=== PATIENT | female | born 1950 | race Hispanic/Latino ===

== ENCOUNTER 2017-11-30 05:05 | Emergency (ER) | payer BC, OTHER ==
[~2017-11-30] VITALS: Ht 154.9 cm; Wt 72.6 kg
[~2017-11-30 05:05] MED LIST: BISTOLIC PO
[2017-11-30 05:31] VITALS: BP 148/87
--- NOTE | 2017-11-30 06:38 | Diagnostic Imaging Report ---
EXAM: CHEST 2 VIEWS, PA and lateral INDICATION: Cough for 4 days COMPARISON: PA and lateral view of the chest October 18, 2016 FINDINGS: LINES/TUBES: None LUNGS: Left lower lobe airspace opacity PLEURA: No effusion or pneumothorax. HEART AND MEDIASTINUM: Normal size and contour. BONES AND SOFT TISSUES: No acute findings. IMPRESSION: Possible pneumonia in the left lung base. Signed by: Dr. Mala Vazquez M.D. on 11/30/2017 6:34 AM
== END 2017-11-30 06:57 | disposition home or self-care (01) ==
LOC: ER 05:05
DX: R05 Cough (principal); J20.9 Acute bronchitis, unspecified; H10.231 Serous conjunctivitis, except viral, right eye; I10 Essential (primary) hypertension; E11.9 Type 2 diabetes mellitus without complications
CPT/HCPCS: 71046; 83518; 87070; 99283

== ENCOUNTER → 2017-12-24 | Outpatient (CLI) | payer BC | LOC: MAMMO 10:12 | PROVIDERS: ATTEND Family Medicine | DX: Z12.31 Encounter for screening mammogram for malignant neoplasm of breast (principal) | CPT/HCPCS: 77067 ==

== ENCOUNTER → 2018-03-04 | Outpatient (CLI) | payer BC ==
--- NOTE | 2018-03-04 14:29 | Diagnostic Imaging Report ---
EXAM: DXA BONE DENSITY INDICATIONS: POST MENOPAUSAL COMPARISON: None. FINDINGS: Proximal left femur bone (femoral neck) mineral density (BMD) (g/cm2): 0.84 Femur T-score (standard deviation relative to young adult mean BMD): -0.3 Femur Z-score (standard deviation relative to age-matched control group):1.2 Lumbar bone mineral density (BMD) (g/cm2):0.93 Lumbar T-score (standard deviation relative to young adult mean BMD): -1.1 Lumbar Z-score (standard deviation relative to age-matched control group):0.7 Change since prior exam (%): Femur:Not applicable. Spine:Not applicable. Change since oldest prior exam (%): Femur:Not applicable. Spine:Not applicable. CONCLUSION: 1. Bone mineral density in the left femur is classified as normal. 2. Bone mineral density in the spine is classified as osteopenia/low bone mass. Fracture risk is moderate. World Health Organization Classification: *The Z-score is provided for informational purposes. The T-score is preferable for clinical decisions. When comparing exams, a change of >4% is considered statistically significant. SUGGESTED RECOMMENDATIONS: Normal \T\ Osteopenia:Consideration should be given to use of calcium supplementation, daily multiple vitamins and adequate exercise, as preventive measures against osteoporosis, if clinically indicated. Osteoporosis \T\ Severe Osteoporosis:In addition to the above, consideration should be given to medical therapy against osteoporosis, if clinically indicated. Dictated by: Shamar Israel M.D. on 03/04/2018 at 14:35 Electronically approved by: Shamar Israel M.D. on 03/04/2018 at 14:35
== END ==
LOC: DX 13:43
PROVIDERS: ATTEND Family Medicine
DX: Z13.820 Encounter for screening for osteoporosis (principal); Z78.0 Asymptomatic menopausal state
CPT/HCPCS: 77080

== ENCOUNTER 2019-06-21 07:00 | Emergency (ER) | payer SELFPAY ==
[~2019-06-21] VITALS: Ht 154.9 cm; Wt 72.6 kg
--- OUTSIDE RECORDS SUMMARY | 2019-06-21 07:03 | XMS REPORT ---
Author Author [facility] Address Unknown Phone Unavailable Care Team Providers Care Harness Preparer Name Role Phone JESUS OLIVER Unavailable Unavailable Nadira DONOHUE Unavailable Unavailable Problems This patient has no known problems. Allergies, Adverse Reactions, Alerts This patient has no known allergies or adverse reactions. Medications This patient has no known medications. Results Test Description Test Time Test Comments Text Results Atomic Results Result Comments BONE DXA DUAL ENERGY 2018-03-04 14:35:00 [place] [address] Patient Name: SHAYLA EATON MR #: [id number] : 1950 Age/Sex: 67/F Req #: [id number] [facility] Physician: Ordered by: MELODY SCHULZ, JESUS Jimenez MD Report #: [id number] Location: DX Room/Bed: Procedure: [id number] DX/BONE DXA DUAL ENERGY Exam Date: Exam Time: REPORT STATUS: Signed EXAM: DXA BONE DENSITY INDICATIONS: POST MENOPAUSAL COMPARISON: None. FINDINGS: Proximal left femur bone (femoral neck) mineral density (BMD) (g/cm2): 0.84 Femur T-score (standard deviation relative to young adult mean BMD): -0.3 Femur Z-score (standard deviation relative to age-matched control group): 1.2 Lumbar bone mineral density (BMD) (g/cm2): 0.93 Lumbar T-score (standard deviation relative to young adult mean BMD): -1.1 Lumbar Z-score (standard deviation relative to age-matched control group): 0.7 Change since prior exam (%): Femur: Not applicable. Spine: Not applicable. Change since oldest prior exam (%): Femur: Not applicable. Spine: Not applicable. CONCLUSION: 1. Bone mineral density in the left femur is classified as normal. 2. Bone mineral density in the spine is classified as osteopenia/low bone mass. Fracture risk is moderate. World Health Organization Classification: *The Z-score is provided for informational purposes. The T-score is preferable for clinical decisions. When comparing exams, a change of >4% is considered statistically significant. SUGGESTED RECOMMENDATIONS: Normal T Osteopenia: Consideration should be given to use of calcium supplementation, daily multiple vitamins and adequate exercise, as preventive measures against osteoporosis, if clinically indicated. Osteoporosis T Severe Osteoporosis: In addition to the above, consideration should be given to medical therapy against osteoporosis, if clinically indicated. Dictated by: Shamar Cortez M.D. on 03/04/2018 at 14:35 Electronically approved by: Shamar Cortez M.D. on 03/04/2018 at 14:35 Dictated By: SHAMAR CORTEZ MD 1435 Transcribed By: JEFFY on 03/04/18 1435 COPY TO: JESUS OLIVER MAMMOGRAPHY DIGITAL SCR BILAT 2017-12-24 10:47:00 [place] [address] Patient Name: SHAYLA EATON MR #: [id number] : 1950 Age/Sex: 67/F Req #: [id number] Adm Physician: Ordered by: JESUS OLIVER MD, MD Report #: [id number] Location: [facility] Room/Bed: Procedure: MG/MAMMOGRAPHY DIGITAL SCR BILAT Exam Date: 12/24/17 Exam Time: 1033 REPORT STATUS: Signed #[id number] - MGSCRBIL #BILATERAL DIGITAL SCREENING MAMMOGRAM WITH CAD: 12/24/2017 CLINICAL: Routine screening. No prior exams were available for comparison. Current study contains 4 films. There are scattered fibroglandular elements in both breasts. Current study was also evaluated with a Computer Aided Detection (CAD) system. There are benign calcifications in both breasts. No significant masses, calcifications, or other findings are seen in either breast. IMPRESSION: BENIGN There is no mammographic evidence of malignancy. A 1 year screening mammogram is recommended. The patient will be notified by letter of the results. Nahomi amaya/destiny:01/03/2018 13:52:03 Help Desk Operator: Ellyn SHERMAN(R)(M), [facility] letter sent: Normal Exam Mammogram BI-RADS: 2 Benign Dictated By: NAHOMI BERMAN DO 1352 Transcribed By: DESTINY on 01/03/18 1352 COPY TO: JESUS OLIVER CHEST 2 VIEWS [place] [address] Patient Name: SHAYLA EATON MR #: [id number] : 1950 Age/Sex: 67/F Req #: [id number] [facility] Physician: Ordered by: ELIDA DONOHUE MD Report #: [id number] Location: ER Room/Bed: Procedure: [id number] DX/CHEST 2 VIEWS Exam Date: 11/30/17 Exam Time: 0555 REPORT STATUS: Signed EXAM: CHEST 2 VIEWS, PA and lateral INDICATION: Cough for 4 days COMPARISON: PA and lateral view of the chest October 18, 2016 FINDINGS: LINES/TUBES: None LUNGS: Left lower lobe airspace opacity PLEURA: No effusion or pneumothorax. HEART AND MEDIASTINUM: Normal size and contour. BONES AND SOFT TISSUES: No acute findings. IMPRESSION: Possible pneumonia in the left lung base. Signed by: Dr. Alma Vazquez M.D. on 11/30/2017 6:34 AM Dictated By: ALMA VAZQUEZ MD 3 Transcribed By: GILSON on 11/30/17633 COPY TO: ELIDA DONOHUE MD
[2019-06-21] MEDS ORDERED: SILVER NITRATE SWABS TOP ONE (07:45)
== END 2019-06-21 08:00 | disposition home or self-care (01) ==
LOC: ER 07:00
DX: R04.0 Epistaxis (principal)
CPT/HCPCS: 99283

== ENCOUNTER → 2019-11-23 | Outpatient (CLI) | payer MEDICARE, OTHER ==
--- NOTE | 2019-11-23 15:05 | Diagnostic Imaging Report ---
EXAM: US PELVIS COMPLETE NON OB, US TRANSVAGINAL DATE: 11/23/2019 1:09 PM INDICATION: Dysfunctional uterine bleeding COMPARISON: None FINDINGS: Transabdominal and transvaginal images were obtained of the pelvis. There is a 0.6 x 0.5 x 0.7 cm well-defined hypoechoic lesion identified within the cervix. The uterus measures 5.4 x 3.1 x 4.8 cm. Multiple multiple subcentimeter echogenic foci are identified throughout the uterus. A shadowing echogenic foci within this the submucosal region measures approximately 0.8 x 0.3 x 0.8 cm. A trace amount of anechoic appearing fluid is noted within the endometrial stripe. The endometrial stripe otherwise measures 3 mm in maximal thickness. The right ovary measures 1.1 x 1.0 x 1.2 cm. The left ovary measures 1.4 x 0.9 x 0.9 cm. No abnormal adnexal masses are identified. IMPRESSION: 1. Subcentimeter hypoechoic lesion identified within the cervix which is a definitively characterized on this ultrasound examination but may represent a nabothian cyst with internal debris. 2. Multiple echogenic foci identified within the uterine likely representing calcifications. 3. Trace amount of nonspecific free fluid noted within the endometrial stripe. Signed by: Dr. Adan Dunlap MD on 11/23/2019 3:01 PM
== END ==
LOC: US 12:27
PROVIDERS: ATTEND Family Medicine
DX: N93.8 Other specified abnormal uterine and vaginal bleeding (principal)
CPT/HCPCS: 76830; 76856

== ENCOUNTER 2020-04-27 21:19 | Emergency (ER) | payer MEDICARE, OTHER ==
[~2020-04-27] VITALS: Ht 160 cm; Wt 88.5 kg
--- OUTSIDE RECORDS SUMMARY | 2020-04-27 21:54 | XMS REPORT | Continuity of Care Document ---
Author Author [facility] t Organization [facility] Address [address] [place] [address] Phone Unavailable Care Team Providers Care Paster Hat Lining Name Role Phone JESUS OLIVER PCP Barbara OLIVER MD Attphys Unavailable Nadira DONOHUE Attphys Unavailable Payers Payer Name Policy Type Policy Number Effective Date Expiration Date [id number] 2014 00:00:00 [facility] [employer] Pos [id number] 2014 00:00:00 [facility] Problems This patient has no known problems. Allergies, Adverse Reactions, Alerts Allergy Name Allergy Type Status Severity Reaction(s) Onset Date Inacti ve Date Treating Clinician Comments Source hydrocodone bit Allergy to Substance Active AIRWAY 2013-07-27 00:0 0:00 [facility] Acetaminophen Allergy to Substance Active AIRWAY 2013-07-27 00:00: 00 [facility] Medications Ordered Medication Name Filled Medication Name Start Date Stop Da te Current Medication? Ordering Clinician Indication Dosage Frequency Signature (SIG) Comments Components Source Bistolic Bistolic Yes 5 Daily [facility] Procedures This patient has no known procedures. Encounters Start Date/Time End Date[facility] Source 2019-06-21 07:00:00 2019-06-21 08:00:00 Departed Emergency Room [facility] [id number] [facility] 2017-11-30 05:05:00 2017-11-30 06:57:00 Departed Emergency Room ER ELIDA DONOHUE [facility] [id number] [facility] Results Test Description Test Time Test Comments Results Result Comments Source US TRANSVAGINAL 2019-11-23 14:09:00 [place] [address] Patient Name: SHAYLA EATON MR #: [id number] : 1950 Age/Sex: 69/F Req #: [id number] Adm Physician: Ordered by: MELODY SCHULZ, JESUS Jimenez MD Report #: [id number] Location: US Room/Bed: Procedure: [id number] US/US TRANSVAGINAL Exam Date: 11/23/19 Exam Time: 1309 REPORT STATUS: Signed EXAM: US PELVIS COMPLETE NON OB, US TRANSVAGINAL DATE: 11/23/2019 1:09 PM INDICATION: Dysfunctional uterine bleeding COMPARISON: None FINDINGS: Transabdominal and transvaginal images were obtained of the pelvis. There is a 0.6 x 0.5 x 0.7 cm well-defined hypoechoic lesion identified within the cervix. The uterus measures 5.4 x 3.1 x 4.8 cm. Multiple multiple subcentimeter echogenic foci are identified throughout the uterus. A shadowing echogenic foci within this the submucosal region measures approximately 0.8 x 0.3 x 0.8 cm. A trace amount of anechoic appearing fluid is noted within the endometrial stripe. The endometrial stripe otherwise measures 3 mm in maximal thickness. The right ovary measures 1.1 x 1.0 x 1.2 cm. The left ovary measures 1.4 x 0.9 x 0.9 cm. No abnormal adnexal masses are identified. IMPRESSION: 1. Subcentimeter hypoechoic lesion identified within the cervix which is a definitively characterized on this ultrasound examination but may represent a nabothian cyst with internal debris. 2. Multiple echogenic foci identified within the uterine likely representing calcifications. 3. Trace amount of nonspecific free fluid noted within the endometrial stripe. Signed by: Dr. Adan Dunlap MD on 11/23/2019 3:01 PM Dictated By: ADAN DUNLAP MD 00 Transcribed By: GILSON on 11/23/191 COPY TO: JESUS OLIVER PELVIS COMPLETE NON OB 2019-11-23 14:09:00 [place] [address] Patient Name: SHAYLA EATON MR #: [id number] : 1950 Age/Sex: 69/F Req #: [id number] Adm Physician: Ordered by: JESUS OLIVER MD, MD Report #: [id number] Location: US Room/Bed: Procedure: [id number] US/US PELVIS COMPLETE NON OB Exam Date: 11/23/19 Exam Time: 1309 REPORT STATUS: Signed EXAM: US PELVIS COMPLETE NON OB, US TRANSVAGINAL DATE: 11/23/2019 1:09 PM INDICATION: Dysfunctional uterine bleeding COMPARISON: None FINDINGS: Transabdominal and transvaginal images were obtained of the pelvis. There is a 0.6 x 0.5 x 0.7 cm well-defined hypoechoic lesion identified within the cervix. The uterus measures 5.4 x 3.1 x 4.8 cm. Multiple multiple subcentimeter echogenic foci are identified throughout the uterus. A shadowing echogenic foci within this the submucosal region measures approximately 0.8 x 0.3 x 0.8 cm. A trace amount of anechoic appearing fluid is noted within the endometrial stripe. The endometrial stripe otherwise measures 3 mm in maximal thickness. The right ovary measures 1.1 x 1.0 x 1.2 cm. The left ovary measures 1.4 x 0.9 x 0.9 cm. No abnormal adnexal masses are identified. IMPRESSION: 1. Subcentimeter hypoechoic lesion identified within the cervix which is a definitively characterized on this ultrasound examination but may represent a nabothian cyst with internal debris. 2. Multiple echogenic foci identified within the uterine likely representing calcifications. 3. Trace amount of nonspecific free fluid noted within the endometrial stripe. Signed by: Dr. Adan Dunlap MD on 11/23/2019 3:01 PM Dictated By: ADAN DUNLAP MD 150 Transcribed By: GILSON on 11/23/19 150 COPY TO: JESUS OLIVER BONE DXA DUAL ENERGY 2018-03-04 14:35:00 [place] [address] Patient Name: SHAYLA EATON MR #: [id number] : 1950 Age/Sex: 67/F Req #: [id number] Adm Physician: Ordered by: MELODY SCHULZ, JESUS Jimenez MD Report #: [id number] Location: DX Room/Bed: Procedure: [id number] DX/BONE DXA DUAL ENERGY Exam Date: Exam [...] OLIVER MAMMOGRAPHY DIGITAL SCR BILAT 2017-12-24 10:47:00 [place] [address] Patient Name: SHAYLA EATON MR #: [id number] : 1950 Age/Sex: 67/F Req #: [id number] Adm Physician: Ordered by: JESUS OLIVER MD, MD Report #: [id number] Location: [facility] [place] Room/Bed: Procedure: [id number] MG/MAMMOGRAPHY DIGITAL SCR BILAT Exam Date: 12/24/17 Exam Time: 1033 REPORT STATUS: Signed #[id number] - MGSCRBIL #BILATERAL DIGITAL SCREENING MAMMOGRAM WITH [...] be notified by letter of the results. Sher amaya/elliott:01/03/2018 13:52:03 Director Clinical Operations: Ellyn NGUYEN)(Temitope), [facility] letter sent: Normal Exam Mammogram BI-RADS: 2 Benign Dictated By: SHER BERMAN DO 1352 Transcribed By: ELLIOTT on 01/03/18 1352 COPY TO: JESUS OLIVER Group A Streptococcus Screen 2017-11-30 05:45:00 Test Item Group A Streptococcus Screen (test code = 77336-9) NEGATIVE [facility] [place] [address] Patient Name: SHAYLA EATON MR #: [id number] : 1950 Age/Sex: 67/F Req #: [id number] Adm Physician: Ordered by: ELIDA DONOHUE MD Report #: [id number] Location: ER Room/Bed: Procedure: [id number] DX/CHEST 2 VIEWS Exam Fred e: 11/30/17 Exam Time: 0555 REPORT STATUS: Sign ed EXAM: CHEST 2 VIEWS, PA and lateral INDICATION: Cough for 4 days KAYLAH RISON: PA and lateral view of the chest October 18, 2016 FINDINGS: LINES/TU BES: None LUNGS: Left lower lobe airspace opacity PLEURA: No effusion or pneumothorax. HEART AND MEDIASTINUM: Normal size and contour. BONES AND SOFT TISSUES: No acute findings. IMPRESSION: Possible pneumonia in the left lung base. Signed by: Dr. Alma Vazquez M.D. on 12/01/19 6:34 AM Dictated By: ALMA VAZQUEZ MD 3 Transcribed By: GILSON on 11/30/17633 COPY TO: ELIDA DONOHUE MD
[2020-04-27] MEDS ORDERED: KETOROLAC TROMETHAMINE 60 MG/2 ML VIAL IM ONE (22:00)
[2020-04-27 22:19] LABS: BILIRUBIN,URINE NEGATIVE (NEGATIVE); CLARITY,URINE CLEAR (CLEAR); COLOR,URINE YELLOW (YELLOW); KETONES,URINE NEGATIVE (NEGATIVE); LEUKOCYTE ESTERASE ,URINE TRACE (NEGATIVE); NITRITE,URINE NEGATIVE (NEGATIVE); PROTEIN,URINE DIPSTICK NEGATIVE (NEGATIVE); URINE UROBILINOGEN 0.2 mg/dL (0.2 - 1)
[2020-04-27 22:27] LABS: BACTERIA,URINE FEW /HPF; EPITHELIAL CELLS,URINE FEW /LPF; RENAL EPITHELIAL CELLS,URINE FEW; TRANSITIONAL EPI CELLS,URINE FEW; WBC,URINE (MAN) 21-50 /HPF (0-5)
--- NOTE | 2020-04-27 22:31 | Emergency Department Note ---
History of Present Illnes History of Present Illness Chief Complaint: Back Pain History of Present Illness This is a 70 year old female Mid back pain that radiates to the left rib describes as stabbing onset yesterday. Appears no respiratory distress, VSS.. PAIN IS WORSE WITH MOVEMENT . Historian: Patient, Family Member Arrival Mode: Car Cut Off Worker Required: No Onset (how long ago): day(s) (1) Location: LEFT MID BACK Quality: PAIN Radiation: Reports other (TO LEFT FLANK) Onset quality: sudden Duration (how long): day(s) (1) Timing of current episode: constant Progression: unchanged Chronicity: new Context: Denies recent illness, Denies recent surgery, Denies recent travel Relieving factors: none Exacerbating factors: movement Associated symptoms: Reports denies other symptoms Treatments prior to arrival: none Past Medical/Family History Physician Review I have reviewed the patient's past medical and family history. Any updates have been documented here. Past Medical History Recent Fever: No Clinical Suspicion of Infectio: No New/Unexplained Change in Ment: No Past Medical History: Hypertension, Diabetes, Hyperlipedemia, Chronic Back Pain Other Medical History: SHINGLES Past Surgical History: Cholecysctectomy, Back Surgery Other Surgery: LEFT KNEE SURGERY Social History Smoking Cessation: Never Smoker Alcohol Use: None Any Illegal Drug Use: No Family History Family history of heart diseas: No Other Last Tetanus: UNK Review of Systems Review of Systems Constitutional: Reports no symptoms EENTM: Reports no symptoms Cardiovascular: Reports no symptoms Respiratory: Reports no symptoms Gastrointestinal: Reports no symptoms Genitourinary: Reports no symptoms Musculoskeletal: Reports as per HPI Integumentary: Reports no symptoms Neurological: Reports no symptoms Psychological: Reports no symptoms Endocrine: Reports no symptoms Hematological/Lymphatic: Reports no symptoms Physical Exam Related Data Allergies: Coded Allergies: acetaminophen (Verified Allergy, Unknown, AIRWAY, 04/27/20) hydrocodone bit (Verified Allergy, Unknown, AIRWAY, 04/27/20) Triage Vital Signs Vital Signs Date Time Temp Pulse Resp B/P (MAP) Pulse Ox O2 Delivery O2 Flow Rate FiO2 04/27/20 21:45 98.2 79 16 136/67 100 Room Air Vital signs reviewed: Yes Physical Exam CONSTITUTIONAL Constitutional: Present well-developed, Present well-nourished; Absent distressed HENT HENT: Present normocephalic, Present atraumatic, Present oropharynx clear/moist, Present nose normal HENT L/R: Present left ext ear normal, Present right ext ear normal EYES Eyes: Reports PERRL, Reports conjunctivae normal NECK Neck: Present ROM normal PULMONARY Pulmonary: Present effort normal, Present breath sounds normal CARDIOVASCULAR Cardiovascular: Present regular rhythm, Present heart sounds normal, Present capillary refill normal, Present normal rate GASTROINTESTINAL Abdominal: Present soft, Present nontender, Present bowel sounds normal GENITOURINARY Genitourinary: Present exam deferred SKIN Skin: Present warm, Present dry MUSCULOSKELETAL Musculoskeletal: Present ROM normal, Present other (LEFT MIDBACK WITH SOFT TISSUE TENDERNESS, PAIN WORSE WITH MOVEMENT) NEUROLOGICAL Neurological: Present alert, Present oriented x 3, Present no gross motor or sensory deficits PSYCHOLOGICAL Psychological: Present mood/affect normal, Present judgement normal Results Laboratory Laboratory Laboratory Tests Test 04/27/20 21:26 Urine Color Yellow (YELLOW) Urine Clarity Clear (CLEAR) Urine pH 6.5 (5 - 7) Urine Specific Kimball 1.010 (1.010-1.025) Urine Protein Negative (NEGATIVE) Urine Glucose (UA) Negative (NEGATIVE) Urine Ketones Negative (NEGATIVE) Urine Blood Trace (NEGATIVE) Urine Nitrite Negative (NEGATIVE) Urine Bilirubin Negative (NEGATIVE) Urine Urobilinogen 0.2 mg/dL (0.2 - 1) Urine Leukocyte Esterase Trace (NEGATIVE) Urine RBC 6-10 /HPF (0-5) Urine WBC 21-50 /HPF (0-5) Urine Epithelial Cells Few /LPF (NONE) Urine Transitional Epithelial Cells Few (NONE) Urine Renal Epithelial Cells Few (NONE) Urine Bacteria Few /HPF (NONE) Imaging Imaging results reviewed: Yes Impressions EXAM: CT Abdomen and Pelvis WITHOUT contrast INDICATION: Left flank pain COMPARISON: Pelvic ultrasound 11/23/2019. TECHNIQUE: Abdomen and pelvis were scanned utilizing a multidetector helical scanner from the lung base to the pubic symphysis without administration of IV contrast. Absence of intravenous contrast decreases sensitivity for detection of focal lesions and vascular pathology. Coronal and sagittal reformations were obtained. Routine protocol was performed. IV CONTRAST: None ORAL CONTRAST: None COMPLICATIONS: None RADIATION DOSE: Total DLP: 632 mGy*cm Estimated effective dose: (DLP x 0.015 x size factor) mSv CTDIvol has been reviewed. It is below the limits set by the Radiation Protocol Committee (RPC). Dose modulation, iterative reconstruction, and/or weight based adjustment of the mA/kV was utilized to reduce the radiation dose to as low as reasonably achievable. FINDINGS: LINES and TUBES: None. LOWER THORAX: Unremarkable HEPATOBILIARY: Nodular hepatic surface contour. Extensive nodularity in both hepatic lobes, some of the nodules are hyperdense. No biliary ductal dilation. GALLBLADDER: No radio-opaque stones or sludge. No wall thickening. SPLEEN: Mild splenomegaly. PANCREAS: No focal masses or ductal dilatation. ADRENALS: No adrenal nodules KIDNEYS/URETERS: No hydronephrosis. No cystic or solid mass lesions. No stones. GI TRACT: No abnormal distention, wall thickening, or evidence of bowel obstruction. Appendix is normal. PELVIC ORGANS/BLADDER: A 7 mm calcification at the endometrial fundus. Uterus and adnexa are unremarkable. LYMPH NODES: No lymphadenopathy. VESSELS: Arterial calcifications. Small gastroesophageal varices. PERITONEUM / RETROPERITONEUM: No free air or fluid. BONES: Degenerative changes. Unremarkable. SOFT TISSUES: Unremarkable. IMPRESSION: Enlarged cirrhotic liver, portal hypertension and gastroesophageal varices. Multiple bilobar heterogeneous hepatic nodules, some of which are likely siderotic nodules. Recommend nonemergent liver MRI with contrast for further evaluation. A 7 mm calcification at the endometrial fundus it is likely a calcified degenerated submucosal fibroid. No urolithiasis or evidence of urinary tract abnormality. Signed by: Katie Madera DO on 04/28/2020 12:28 AM Dictated By: KTAIE MADERA DO Transcribed By: GILSON on 04/28/2027 COPY TO: ELIDA DONOHUE MD~ Assessment & Plan Medical Decision Making MDM PT WITH LEFT MID BACK PAIN RADIATING TO LEFT FLANK CXR, UA ORDERED TO EVAL FOR UTI, HEMATURIA, PNEUMONIA, PNEUMOTHORAX TORADOL 60 MG IM ORDERED Assessment & Plan Final Impression: (1) UTI (urinary tract infection) (2) Flank pain Depart Disposition: HOME, SELF-CARE Last Vital Signs Date Time Temp Pulse Resp B/P (MAP) Pulse Ox O2 Delivery O2 Flow Rate FiO2 04/27/20 21:45 98.2 76 16 136/67 100 Room Air Home Meds Reported Medications [Bistolic] No Conflict Check, 5 MG PO DAILY, 0 Refills 04/15/11 Medications in the ED Ketorolac Tromethamine 60 mg ONCE ONCE IM ; Start 04/27/20 at 22:00; Stop 04/27/20 at 22:03; Status DC ELIDA DONOHUE MD Apr 27, 2020 22:31
--- NOTE | 2020-04-27 23:04 | Diagnostic Imaging Report ---
EXAMINATION: CHEST 2 VIEWS INDICATION: Left-sided pain COMPARISON: Chest x-ray 11/30/2017 FINDINGS: TUBES and LINES: None. LUNGS: Normal lung volumes. Lungs are clear. No consolidations. PLEURA: No pleural effusion or pneumothorax. HEART AND MEDIASTINUM: The cardiomediastinal silhouette is unremarkable. BONES AND SOFT TISSUES: No acute osseous lesion. Soft tissues are unremarkable. Degenerative changes in the spine. UPPER ABDOMEN: No free air under the diaphragm. IMPRESSION: No acute thoracic radiographic abnormality. Signed by: Raul Madera DO on 04/27/2020 11:00 PM
--- NOTE | 2020-04-28 00:32 | Diagnostic Imaging Report ---
EXAM: CT Abdomen and Pelvis WITHOUT contrast INDICATION: Left flank pain COMPARISON: Pelvic ultrasound 11/23/2019. TECHNIQUE: Abdomen and pelvis were scanned utilizing a multidetector helical scanner from the lung base to the pubic symphysis without administration of IV contrast. Absence of intravenous contrast decreases sensitivity for detection of focal lesions and vascular pathology. Coronal and sagittal reformations were obtained. Routine protocol was performed. IV CONTRAST: None ORAL CONTRAST: None COMPLICATIONS: None RADIATION DOSE: Total DLP: 632 mGy*cm Estimated effective dose: (DLP x 0.015 x size factor) mSv CTDIvol has been reviewed. It is below the limits set by the Radiation Protocol Committee (RPC). Dose modulation, iterative reconstruction, and/or weight based adjustment of the mA/kV was utilized to reduce the radiation dose to as low as reasonably achievable. FINDINGS: LINES and TUBES: None. LOWER THORAX: Unremarkable HEPATOBILIARY: Nodular hepatic surface contour. Extensive nodularity in both hepatic lobes, some of the nodules are hyperdense. No biliary ductal dilation. GALLBLADDER: No radio-opaque stones or sludge. No wall thickening. SPLEEN: Mild splenomegaly. PANCREAS: No focal masses or ductal dilatation. ADRENALS: No adrenal nodules KIDNEYS/URETERS: No hydronephrosis. No cystic or solid mass lesions. No stones. GI TRACT: No abnormal distention, wall thickening, or evidence of bowel obstruction. Appendix is normal. PELVIC ORGANS/BLADDER: A 7 mm calcification at the endometrial fundus. Uterus and adnexa are unremarkable. LYMPH NODES: No lymphadenopathy. VESSELS: Arterial calcifications. Small gastroesophageal varices. PERITONEUM / RETROPERITONEUM: No free air or fluid. BONES: Degenerative changes. Unremarkable. SOFT TISSUES: Unremarkable. IMPRESSION: Enlarged cirrhotic liver, portal hypertension and gastroesophageal varices. Multiple bilobar heterogeneous hepatic nodules, some of which are likely siderotic nodules. Recommend nonemergent liver MRI with contrast for further evaluation. A 7 mm calcification at the endometrial fundus it is likely a calcified degenerated submucosal fibroid. No urolithiasis or evidence of urinary tract abnormality. Signed by: Raul Madera DO on 04/28/2020 12:28 AM
== END 2020-04-28 01:10 | disposition home or self-care (01) ==
LOC: ER 21:52
DX: R07.81 Pleurodynia (principal); M54.5 Low back pain; N39.0 Urinary tract infection, site not specified; I10 Essential (primary) hypertension; E11.9 Type 2 diabetes mellitus without complications; E78.5 Hyperlipidemia, unspecified; G89.29 Other chronic pain
CPT/HCPCS: 71046; 74176; 81001; 99284; J1885

== ENCOUNTER 2021-05-25 08:03 | Emergency (ER) | payer MEDICARE, OTHER ==
[~2021-05-25] VITALS: Ht 160 cm; Wt 88.5 kg
[2021-05-25] MEDS ORDERED: SODIUM CHLORIDE 0.9% 1000ML 1,000 ML IV STA (08:20)
[2021-05-25] MEDS ORDERED: ONDANSETRON HCL INJ 2MG/ML 2ML 2 MG/ML VIAL IV ONE (08:30)
[2021-05-25] MEDS ORDERED: MECLIZINE HCL 12.5 MG TAB PO ONE (08:30)
[2021-05-25 08:56] LABS: BASOPHILS % 0.4 % (0.0-1.0); EOSINOPHILS # (AUTO) 0.2 (0.0-0.4); EOSINOPHILS % 2.3 % (0.0-6.0); HEMATOCRIT 33.9 % (34.2-44.1); HEMOGLOBIN 11.1 g/dL (12.0-16.0); LYMPHOCYTES # (AUTO) 1.4 (1.0-3.2); LYMPHOCYTES % 20.2 % (18.0-39.1); MEAN CORPUSCULAR HEMOGLOBIN 28.4 pg (28-32); MEAN CORPUSCULAR HGB CONC 32.7 g/dL (31-35); MEAN CORPUSCULAR VOLUME 86.7 fL (81-99); MONOCYTES # (AUTO) 0.6 (0.2-0.8); MONOCYTES % 8.3 % (4.4-11.3); NEUTROPHILS # (AUTO) 4.7 (2.1-6.9); NEUTROPHILS % 68.5 % (38.7-80.0); PLATELET COUNT 76 x10e3/uL (140-360); RED BLOOD COUNT 3.91 x10e6/uL (3.6-5.1)
[2021-05-25 09:11] LABS: CLARITY,URINE CLEAR (CLEAR); COLOR,URINE YELLOW (YELLOW)
[2021-05-25 09:12] LABS: KETONES,URINE NEGATIVE (NEGATIVE); LEUKOCYTE ESTERASE ,URINE SMALL (NEGATIVE); NITRITE,URINE POSITIVE (NEGATIVE); PROTEIN,URINE DIPSTICK TRACE (NEGATIVE); URINE UROBILINOGEN 0.2 mg/dL (0.2 - 1)
[2021-05-25 09:16] LABS: BACTERIA,URINE MANY /HPF; EPITHELIAL CELLS,URINE MANY /LPF; RBC,URINE 0-5 /HPF (0-5); TRANSITIONAL EPI CELLS,URINE FEW; WBC,URINE (MAN) >50 /HPF (0-5)
[2021-05-25 09:19] LABS: ALBUMIN 3.3 g/dL (3.5-5.0); ALBUMIN/GLOBULIN RATIO 0.8 (0.8-2.0); ANION GAP 13.3 mmol/L (8-16); CALCIUM 8.4 mg/dL (8.4-10.2); CREATININE, SERUM 0.81 mg/dL (0.57-1.11); MAGNESIUM 1.8 MG/DL (1.3-2.1); POTASSIUM 4.3 mmol/L (3.5-5.1)
[2021-05-25 09:26] LABS: CREATINE KINASE MB 0.8 ng/mL (0-5.0)
[2021-05-25 11:52] VITALS: BP 151/74
== END 2021-05-25 11:54 | disposition home or self-care (01) ==
LOC: ER 08:07
DX: R42 Dizziness and giddiness (principal); N39.0 Urinary tract infection, site not specified; E11.65 Type 2 diabetes mellitus with hyperglycemia; I10 Essential (primary) hypertension; E78.5 Hyperlipidemia, unspecified; Z86.73 Personal history of transient ischemic attack (TIA), and cerebral infarction without residual deficits
CPT/HCPCS: 36415; 70450; 80053; 81001; 82550; 82553; 83735; 83880; 84484; 85025; 87086; 87186; 93005; 99284; J2405; J7030; J8597

== ENCOUNTER 2021-06-04 17:41 | Inpatient (IN) | payer MEDICARE ==
[~2021-06-04] VITALS: Ht 160 cm; Wt 88.5 kg
[2021-06-04] MEDS ORDERED: SODIUM CHLORIDE 0.9% 1000ML 1,000 ML IV STA (18:30)
[2021-06-04 19:01] LABS: BASOPHILS % 0.2 % (0.0-1.0); EOSINOPHILS % 0.4 % (0.0-6.0); HEMATOCRIT 33.1 % (34.2-44.1); HEMOGLOBIN 11.1 g/dL (12.0-16.0); LYMPHOCYTES # (AUTO) 0.9 (1.0-3.2); LYMPHOCYTES % 10.3 % (18.0-39.1); MEAN CORPUSCULAR HEMOGLOBIN 28.1 pg (28-32); MEAN CORPUSCULAR HGB CONC 33.5 g/dL (31-35); MEAN CORPUSCULAR VOLUME 83.8 fL (81-99); MONOCYTES # (AUTO) 0.6 (0.2-0.8); MONOCYTES % 6.6 % (4.4-11.3); NEUTROPHILS # (AUTO) 6.9 (2.1-6.9); PLATELET COUNT 83 x10e3/uL (140-360); RED BLOOD COUNT 3.95 x10e6/uL (3.6-5.1); RED CELL DISTRIBUTION WIDTH 13.8 % (11.7-14.4)
[2021-06-04 19:11] LABS: CLARITY,URINE SL CLOUDY (CLEAR); COLOR,URINE YELLOW (YELLOW)
[2021-06-04 19:12] LABS: ALBUMIN 3.3 g/dL (3.5-5.0); ALBUMIN/GLOBULIN RATIO 0.8 (0.8-2.0); ANION GAP 14.9 mmol/L (8-16); CREATININE, SERUM 0.83 mg/dL (0.57-1.11); KETONES,URINE NEGATIVE (NEGATIVE); LEUKOCYTE ESTERASE ,URINE TRACE (NEGATIVE); NITRITE,URINE NEGATIVE (NEGATIVE); POTASSIUM 3.9 mmol/L (3.5-5.1); PROTEIN,URINE DIPSTICK 2+ (NEGATIVE)
[2021-06-04 19:13] LABS: URINE UROBILINOGEN 0.2 mg/dL (0.2 - 1)
[2021-06-04 19:19] LABS: CREATINE KINASE MB 0.4 ng/mL (0-5.0)
[2021-06-04] MEDS ORDERED: ACETAMINOPHEN 325 MG TAB PO ONE (19:20)
[2021-06-04 19:22] LABS: B-TYPE NATRIURETIC PEPTIDE2 59.5 pg/mL (0-100); BACTERIA,URINE FEW /HPF; EPITHELIAL CELLS,URINE FEW /LPF
[2021-06-04] MEDS ORDERED: CEFTRIAXONE 1 GM VIAL IV ONE (19:45)
[2021-06-04] MEDS ORDERED: CEFTRIAXONE 1 GM in SODIUM CHLORIDE 0.9% 50ML 50 ML IV ONE (20:00)
[2021-06-04 21:39] LABS: ALBUMIN 2.9 g/dL (3.5-5.0); ALBUMIN/GLOBULIN RATIO 0.8 (0.8-2.0); ANION GAP 14.3 mmol/L (8-16); CALCIUM 7.6 mg/dL (8.4-10.2); CREATININE, SERUM 0.86 mg/dL (0.57-1.11); POTASSIUM 4.3 mmol/L (3.5-5.1)
[2021-06-04] MEDS: SODIUM CHLORIDE 0.9% 1000ML 1,000 ML IV SCH (21:58)
[2021-06-04] MEDS ORDERED: SODIUM CHLORIDE 0.9% 1000ML 1,000 ML ONE (22:04)
[2021-06-04 22:43] LABS: CREATINE KINASE MB 0.4 ng/mL (0-5.0)
[2021-06-04] MEDS ORDERED: GLIPIZIDE ER5 MG PO (23:18)
[2021-06-04] MEDS ORDERED: BENICAR20 MG PO (23:18)
[2021-06-04] MEDS ORDERED: OMEPRAZOLE40 MG PO (23:18)
[2021-06-04] MEDS ORDERED: FERROUS SULFAT325 M1 PO (23:18)
[2021-06-05] VITALS (10 sets, daily range): BP systolic 103–131; BP diastolic 48–69
[2021-06-05 05:05] LABS: BASOPHILS % 0.3 % (0.0-1.0); EOSINOPHILS % 0.3 % (0.0-6.0); HEMATOCRIT 27.1 % (34.2-44.1); HEMOGLOBIN 9.1 g/dL (12.0-16.0); LYMPHOCYTES # (AUTO) 0.6 (1.0-3.2); LYMPHOCYTES % 8.5 % (18.0-39.1); MEAN CORPUSCULAR HEMOGLOBIN 28.3 pg (28-32); MEAN CORPUSCULAR HGB CONC 33.6 g/dL (31-35); MEAN CORPUSCULAR VOLUME 84.4 fL (81-99); MONOCYTES # (AUTO) 0.8 (0.2-0.8); MONOCYTES % 11.6 % (4.4-11.3); NEUTROPHILS # (AUTO) 5.6 (2.1-6.9); PLATELET COUNT 62 x10e3/uL (140-360); RED BLOOD COUNT 3.21 x10e6/uL (3.6-5.1); RED CELL DISTRIBUTION WIDTH 13.9 % (11.7-14.4)
[2021-06-05 05:58] LABS: ALBUMIN 2.6 g/dL (3.5-5.0); ALBUMIN/GLOBULIN RATIO 0.7 (0.8-2.0); ANION GAP 10.6 mmol/L (8-16); CALCIUM 7.4 mg/dL (8.4-10.2); CREATININE, SERUM 0.82 mg/dL (0.57-1.11); POTASSIUM 3.6 mmol/L (3.5-5.1)
[2021-06-05] MEDS: SODIUM CHLORIDE 0.9% 1000ML 1,000 ML IV SCH ×2 (06:00→15:53)
[2021-06-05] MEDS ORDERED: ACETAMINOPHEN 325 MG TAB PO PRN (06:00)
[2021-06-05 06:46] LABS: CREATINE KINASE MB 0.6 ng/mL (0-5.0)
[2021-06-05] MEDS ORDERED: DEXTROSE 50% SYRINGE 50 ML IV PRN (13:30)
[2021-06-05] MEDS ORDERED: ONDANSETRON HCL INJ 2MG/ML 2ML 2 MG/ML VIAL IV PRN (15:15)
[2021-06-05] MEDS ORDERED: INSULIN REGULAR, HUMAN 100 UNIT/1 ML SQ SCH (16:30)
[2021-06-05] MEDS ORDERED: IOPAMIDOL 370 MG/ML 200 ML INFUS..BTL INJ ONE (17:13)
[2021-06-05] MEDS ORDERED: SODIUM CHLORIDE 0.9% 50ML 50 ML ONE (17:13)
[2021-06-05 19:10] LABS: CREATINE KINASE MB 1.1 ng/mL (0-5.0)
[2021-06-06] VITALS (7 sets, daily range): BP systolic 111–151; BP diastolic 57–70
[2021-06-06] MEDS: SODIUM CHLORIDE 0.9% 1000ML 1,000 ML IV SCH (05:25)
[2021-06-06 05:58] LABS: BASOPHILS % 0.5 % (0.0-1.0); EOSINOPHILS # (AUTO) 0.2 (0.0-0.4); EOSINOPHILS % 4.2 % (0.0-6.0); HEMOGLOBIN 9.3 g/dL (12.0-16.0); LYMPHOCYTES # (AUTO) 1.2 (1.0-3.2); LYMPHOCYTES % 27.8 % (18.0-39.1); MEAN CORPUSCULAR HEMOGLOBIN 28.5 pg (28-32); MEAN CORPUSCULAR HGB CONC 33.2 g/dL (31-35); MEAN CORPUSCULAR VOLUME 85.9 fL (81-99); MONOCYTES # (AUTO) 0.6 (0.2-0.8); MONOCYTES % 13.6 % (4.4-11.3); NEUTROPHILS # (AUTO) 2.3 (2.1-6.9); NEUTROPHILS % 53.7 % (38.7-80.0); PLATELET COUNT 53 x10e3/uL (140-360); RED BLOOD COUNT 3.26 x10e6/uL (3.6-5.1); RED CELL DISTRIBUTION WIDTH 14.3 % (11.7-14.4)
[2021-06-06 06:31] LABS: ANION GAP 10.6 mmol/L (8-16); CALCIUM 7.5 mg/dL (8.4-10.2); CREATININE, SERUM 0.72 mg/dL (0.57-1.11); POTASSIUM 3.6 mmol/L (3.5-5.1)
[2021-06-06] MEDS ORDERED: GLIPIZIDE 5 MG TAB ER PO SCH (07:30)
[2021-06-06] MEDS ORDERED: FERROUS SULFATE 325 MG TAB PO SCH (09:00)
[2021-06-06] MEDS ORDERED: PANTOPRAZOLE SOD 40 MG TABEC PO SCH (09:00)
[2021-06-06] MEDS ORDERED: OLMESARTAN 20 MG TAB PO SCH (09:00)
[2021-06-06] MEDS ORDERED: METRONIDAZOLE500 MG PO (14:33)
[2021-06-06] MEDS ORDERED: LEVOFLOXACIN500 MG PO (14:33)
[2021-06-06] MEDS ORDERED: ONDANSETRON HCL 4 MG ORAL DISINTEGRATING TAB PO PRN (15:15)
== END 2021-06-06 15:58 | disposition home or self-care (01) | DRG 392 ==
LOC: ER 18:34 → ERHOLD 21:56 → MED/SURG2 22:41 → OBSVTOIN 06-06 11:59
PROVIDERS: ADMIT Internal Medicine; ATTEND Internal Medicine
DX: K52.9 Noninfective gastroenteritis and colitis, unspecified (principal); E87.1 Hypo-osmolality and hyponatremia; I10 Essential (primary) hypertension; E11.9 Type 2 diabetes mellitus without complications; K74.60 Unspecified cirrhosis of liver; D69.59 Other secondary thrombocytopenia; D50.9 Iron deficiency anemia, unspecified; Z20.822 Contact with and (suspected) exposure to COVID-19; Z96.652 Presence of left artificial knee joint
CPT/HCPCS: 36415; 71045; 74177; 80048; 80053; 81001; 82105; 82550; 82553; 83605; 83880; 84484; 85025; 87040; 87086; 93005; 99284; G0378; J0696; J2405; J7030; Q9967; U0002

== ENCOUNTER 2021-06-19 20:31 | Emergency (ER) | payer MEDICARE ==
[~2021-06-19] VITALS: Ht 160 cm; Wt 88.5 kg
[~2021-06-19 20:31] MED LIST changes: +BENICAR20 MG PO; +FERROUS SULFAT325 M1 PO; +GLIPIZIDE ER5 MG PO; +LEVOFLOXACIN500 MG PO; +METRONIDAZOLE500 MG PO; +OMEPRAZOLE40 MG PO
[2021-06-19] MEDS ORDERED: CEFTRIAXONE 1 GM in SODIUM CHLORIDE 0.9% 50ML 50 ML IV ONE (21:00)
[2021-06-19] MEDS ORDERED: ACETAMINOPHEN 325 MG TAB PO ONE (21:00)
[2021-06-19] MEDS ORDERED: SODIUM CHLORIDE 0.9% 1000ML 1,000 ML IV ONE (21:00)
[2021-06-19 21:13] LABS: BASOPHILS % 0.3 % (0.0-1.0); EOSINOPHILS # (AUTO) 0.2 (0.0-0.4); EOSINOPHILS % 2.8 % (0.0-6.0); HEMATOCRIT 32.3 % (34.2-44.1); HEMOGLOBIN 10.9 g/dL (12.0-16.0); LYMPHOCYTES # (AUTO) 0.9 (1.0-3.2); LYMPHOCYTES % 15.2 % (18.0-39.1); MEAN CORPUSCULAR HEMOGLOBIN 28.5 pg (28-32); MEAN CORPUSCULAR HGB CONC 33.7 g/dL (31-35); MEAN CORPUSCULAR VOLUME 84.3 fL (81-99); MONOCYTES # (AUTO) 0.4 (0.2-0.8); MONOCYTES % 6.4 % (4.4-11.3); NEUTROPHILS # (AUTO) 4.6 (2.1-6.9); PLATELET COUNT 68 x10e3/uL (140-360); RED BLOOD COUNT 3.83 x10e6/uL (3.6-5.1); RED CELL DISTRIBUTION WIDTH 14.2 % (11.7-14.4)
[2021-06-19] MEDS ORDERED: ACETAMINOPHEN 325 MG TAB ONE (21:13)
[2021-06-19] MEDS ORDERED: CEFTRIAXONE 1 GM VIAL ONE (21:13)
[2021-06-19 21:28] LABS: ALBUMIN 3.3 g/dL (3.5-5.0); ALBUMIN/GLOBULIN RATIO 0.8 (0.8-2.0); ANION GAP 15.6 mmol/L (8-16); CALCIUM 9.2 mg/dL (8.4-10.2); CREATININE, SERUM 0.87 mg/dL (0.57-1.11); POTASSIUM 3.6 mmol/L (3.5-5.1)
[2021-06-19 21:31] LABS: CLARITY,URINE SL CLOUDY (CLEAR); COLOR,URINE YELLOW (YELLOW); LEUKOCYTE ESTERASE ,URINE NEGATIVE (NEGATIVE); NITRITE,URINE NEGATIVE (NEGATIVE); PROTEIN,URINE DIPSTICK 2+ (NEGATIVE)
[2021-06-19 21:32] LABS: KETONES,URINE NEGATIVE (NEGATIVE); URINE UROBILINOGEN 0.2 mg/dL (0.2 - 1)
[2021-06-19 21:38] LABS: BACTERIA,URINE MODERATE /HPF; EPITHELIAL CELLS,URINE FEW /LPF; WBC,URINE (MAN) 0-5 /HPF (0-5)
[2021-06-19 23:12] VITALS: BP 100/59
== END 2021-06-19 23:14 | disposition home or self-care (01) ==
LOC: ER 20:54
DX: R50.83 Postvaccination fever (principal); E11.65 Type 2 diabetes mellitus with hyperglycemia; I10 Essential (primary) hypertension; E78.5 Hyperlipidemia, unspecified; Z86.73 Personal history of transient ischemic attack (TIA), and cerebral infarction without residual deficits
CPT/HCPCS: 36415; 71045; 80053; 81001; 83605; 85025; 87040; 87086; 93005; 99284; J0696; J7030; U0002

== ENCOUNTER 2021-10-02 06:50 | Emergency (ER) | payer MEDICARE ==
[~2021-10-02] VITALS: Ht 160 cm; Wt 88.5 kg
[2021-10-02] MEDS ORDERED: ONDANSETRON HCL INJ 2MG/ML 2ML 2 MG/ML VIAL IV STA (07:17)
[2021-10-02] MEDS ORDERED: ACETAMINOPHEN 1000 MG/100 ML IV STA (07:17)
[2021-10-02] MEDS ORDERED: SODIUM CHLORIDE 0.9% 1000ML 1,000 ML IV STA ×2 (07:17→08:13)
[2021-10-02 07:50] LABS: BASOPHILS % 0.2 % (0.0-1.0); EOSINOPHILS % 0.2 % (0.0-6.0); HEMOGLOBIN 10.7 g/dL (12.0-16.0); LYMPHOCYTES # (AUTO) 0.9 (1.0-3.2); LYMPHOCYTES % 9.7 % (18.0-39.1); MEAN CORPUSCULAR HEMOGLOBIN 28.8 pg (28-32); MEAN CORPUSCULAR HGB CONC 34.5 g/dL (31-35); MEAN CORPUSCULAR VOLUME 83.3 fL (81-99); MONOCYTES # (AUTO) 0.8 (0.2-0.8); MONOCYTES % 8.9 % (4.4-11.3); NEUTROPHILS % 80.5 % (38.7-80.0); PLATELET COUNT 61 x10e3/uL (140-360); RED BLOOD COUNT 3.72 x10e6/uL (3.6-5.1); RED CELL DISTRIBUTION WIDTH 14.4 % (11.7-14.4)
[2021-10-02 08:01] LABS: INR 1.24; PROTHROMBIN TIME 16.7 seconds (11.9-14.5)
[2021-10-02 08:02] LABS: PARTIAL THROMBOPLASTIN TIME 32.8 seconds (23.8-35.5)
[2021-10-02 08:10] LABS: CLARITY,URINE TURBID (CLEAR); COLOR,URINE YELLOW (YELLOW); KETONES,URINE TRACE (NEGATIVE); LEUKOCYTE ESTERASE ,URINE SMALL (NEGATIVE); NITRITE,URINE POSITIVE (NEGATIVE); PROTEIN,URINE DIPSTICK >=300 (NEGATIVE)
[2021-10-02 08:11] LABS: URINE UROBILINOGEN 1 mg/dL (0.2 - 1)
[2021-10-02 08:14] LABS: ALBUMIN 3.3 g/dL (3.5-5.0); ALBUMIN/GLOBULIN RATIO 0.8 (0.8-2.0); ANION GAP 12.4 mmol/L (8-16); CALCIUM 8.8 mg/dL (8.4-10.2); CREATININE, SERUM 0.89 mg/dL (0.57-1.11); MAGNESIUM 1.4 MG/DL (1.3-2.1); POTASSIUM 3.4 mmol/L (3.5-5.1)
[2021-10-02 08:20] LABS: CREATINE KINASE MB 0.3 ng/mL (0-5.0)
[2021-10-02 08:21] LABS: BACTERIA,URINE MODERATE /HPF; EPITHELIAL CELLS,URINE FEW /LPF; WBC,URINE (MAN) >50 /HPF (0-5)
[2021-10-02] MEDS ORDERED: SODIUM CHLORIDE 0.9% 1000ML 1,000 ML ONE (08:22)
[2021-10-02] MEDS ORDERED: SODIUM CHLORIDE 0.9% 50ML 50 ML ONE (08:38)
[2021-10-02] MEDS ORDERED: IOPAMIDOL 370 MG/ML 200 ML INFUS..BTL INJ ONE (08:38)
[2021-10-02] MEDS ORDERED: CEFTRIAXONE 1 GM in SODIUM CHLORIDE 0.9% 50ML 50 ML IV ONE (09:00)
[2021-10-02 10:35] VITALS: BP 109/52
== END 2021-10-02 10:37 | disposition home or self-care (01) ==
LOC: ER 07:01
DX: A41.9 Sepsis, unspecified organism (principal); K74.60 Unspecified cirrhosis of liver; R50.9 Fever, unspecified; K52.9 Noninfective gastroenteritis and colitis, unspecified; N39.0 Urinary tract infection, site not specified; E11.65 Type 2 diabetes mellitus with hyperglycemia; I10 Essential (primary) hypertension; Z20.822 Contact with and (suspected) exposure to COVID-19; E78.5 Hyperlipidemia, unspecified; Z86.73 Personal history of transient ischemic attack (TIA), and cerebral infarction without residual deficits
CPT/HCPCS: 36415; 71045; 74177; 80053; 81001; 82550; 82553; 83605; 83690; 83735; 84484; 85025; 85610; 85730; 87040; 87086; 93005; 99284; C9113; J0131; J2405; J7030; Q9967; U0002

== ENCOUNTER 2022-08-05 09:28 | Emergency (ER) | payer MEDICARE ==
[~2022-08-05] VITALS: Ht 160 cm; Wt 88.5 kg
[2022-08-05] MEDS ORDERED: OFLOXACIN5 ML OP (09:41)
[2022-08-05] MEDS ORDERED: FLUORESCEIN SOD(OPTH) 1 MG STRP OP ONE (09:45)
== END 2022-08-05 09:47 | disposition home or self-care (01) ==
LOC: ER 09:31
DX: H11.32 Conjunctival hemorrhage, left eye (principal); W22.8XXA Striking against or struck by other objects, initial encounter; Y92.008 Other place in unspecified non-institutional (private) residence as the place of occurrence of the external cause; I10 Essential (primary) hypertension; E11.9 Type 2 diabetes mellitus without complications; E78.5 Hyperlipidemia, unspecified; Z86.73 Personal history of transient ischemic attack (TIA), and cerebral infarction without residual deficits
CPT/HCPCS: 99283

== ENCOUNTER → 2024-12-06 | Outpatient (REF) | payer MEDICARE ==
[~2024-12-06] MED LIST changes: +OFLOXACIN5 ML OP; +ULTRAM 50MG50 MG PO
== END ==
LOC: US 08:03
PROVIDERS: ATTEND Family Medicine Adult Medicine
DX: K76.0 Fatty (change of) liver, not elsewhere classified (principal); K74.60 Unspecified cirrhosis of liver
CPT/HCPCS: 76705